=== PATIENT | male | born 1960 | race Caucasian/White ===

== ENCOUNTER → 2016-12-07 | Outpatient (CLI) | payer OTHER ==
[2016-03-21 01:06] VITALS: BP 144/92
[~2016-12-07] MED LIST: MELO15TA23 PO
--- NOTE | 2016-12-07 15:39 | KCIC ---
CT bone length scanogram HISTORY: Right knee replacement. Unequal leg length. TECHNIQUE: A single topogram image is obtained, inclusive of both lower extremities. Measurements are obtained from the top of the femoral head through the tibial plafond. Right leg length measures 93.4 cm. Left leg length measures 92.7 cm. Right knee replacement is noted. Surgical clips in the scrotal region. Electronically signed by: Cristóbal Johnson MD (12/07/2016 3:36 PM)
== END | disposition home or self-care (01) ==
LOC: KCIC CT 15:04
PROVIDERS: ATTEND Podiatrist Foot & Ankle Surgery
DX: M21.70 Unequal limb length (acquired), unspecified site (principal)
CPT/HCPCS: 77073